=== PATIENT | female | born 1955 | race Caucasian/White ===

== ENCOUNTER → 2024-07-09 | Outpatient (CLI) | payer MEDICARE, OTHER ==
[~2024-07-09] MED LIST: AMLODIPINE10 MG PO; ASPIRIN E.C. 8181 MG PO; COMBIVENT INH14.7 GM IH; COREG6.25 MG PO; FE-TABS325 MG PO; FOLIC ACID 40400 MCG PO; GLUMETZA1000 MG PO; HYZAAR PO; LANTUS100 U/ML PO; LORTAB 5/500 501 TAB PO; MOTRIN800 MG PO; OMEPRAZOLE20 M1 PO; VITAMIN C PO; ZOCOR40 MG PO
== END ==
LOC: COL.RAD 12:59
DX: E11.622 Type 2 diabetes mellitus with other skin ulcer (principal); L97.922 Non-pressure chronic ulcer of unspecified part of left lower leg with fat layer exposed; L97.912 Non-pressure chronic ulcer of unspecified part of right lower leg with fat layer exposed; R09.89 Other specified symptoms and signs involving the circulatory and respiratory systems